=== PATIENT | male | born 1945 | race Caucasian/White ===

== ENCOUNTER 2016-09-29 10:35 | Emergency (ER) | payer MEDICARE, OTHER ==
[~2016-09-29 10:35] MED LIST: ACET50TA PO; ASPI325T PO; CHOLESTEROL MED; LOPR100T; LOPR50TA; LOPR50TA PO; THERGRAN PO; VITA-113; VITAMIN B 12; Vitamin B12 PO; ZOCO20TA PO
[2016-09-29] MEDS ORDERED: ASPIRIN 81 MG CHEW TABLET As Ordered ONE (10:57)
--- NOTE | 2016-09-29 11:22 | REP ---
Portable chest x-ray: Upright AP view. History: Chest pain. Comparison chest x-ray November 25, 2008. Findings: EKG monitoring electrodes overlie the chest. The heart is not enlarged. Lungs are well inflated and clear. Pulmonary vasculature is not increased. Impression: No active disease. Signed by Sheng Islas MD 09/29/2016 11:14 A
[2016-09-29 11:24] LABS: ANION GAP 4 MEQ/L (8-16); BLOOD UREA NITROGEN 13 MG/DL (7-18); CALCIUM LEVEL 8.4 MG/DL (8.8-10.2); CARBON DIOXIDE LEVEL 30 MEQ/L (21-32); CHLORIDE LEVEL 107 MEQ/L (98-107); CREATININE FOR GFR 0.89 MG/DL (0.70-1.30); GLOMERULAR FILTRATION RATE > 60.0 (>49); GLUCOSE, FASTING 95 MG/DL (80-110); POTASSIUM SERUM 4.3 MEQ/L (3.5-5.1); SODIUM LEVEL 141 MEQ/L (136-145)
[2016-09-29 11:29] LABS: BASO % 0.4 % (0.0-1.0); EOS # 0.2 K/mm3 (0.0-0.50); EOS % 3.8 % (0.0-3.0); LARGE UNSTAINED CELL # 0.1 K/mm3 (0.0-0.4); LARGE UNSTAINED CELL % 2.4 % (0.0-4.0); LYMPH # 1.6 K/mm3 (1.5-4.5); LYMPH % 29.3 % (24.0-44.0); MEAN CORPUSCULAR HEMOGLOBIN 30.3 pg (27.0-33.0); MEAN CORPUSCULAR HGB CONC 34.2 g/dl (32.0-36.5); MEAN CORPUSCULAR VOLUME 88.6 fl (80.0-96.0); MONO # 0.3 K/mm3 (0.0-0.8); MONO % 5.1 % (0.0-5.0); NEUTROPHILS # 3.2 K/mm3 (1.8-7.7); PLATELET COUNT, AUTOMATED 197 k/mm3 (150-450); RED CELL DISTRIBUTION WIDTH 12.5 % (11.5-14.5); WHITE BLOOD COUNT 5.5 K/mm3 (4.0-10.0)
[2016-09-29] MEDS ORDERED: ISOVUE-370 76% 100ML VIAL (Q9967) As Ordered ONE (12:38)
--- NOTE | 2016-09-29 13:37 | REP ---
CT pulmonary angiogram: With IV contrast. History: Chest pain. Comparison studies: Comparison with today's chest x-ray. Contrast dose: 75 cc's of Isovue [address] technique: Helical scanning is acquired and overlapping 1.5 mm and contiguous 3 mm axial images are reformatted. In addition, a 3-D work station is deployed to generate thick slab maximum intensity projection images in sagittal and coronal imaging projections. CT pulmonary angiographic findings: There is good opacification of the pulmonary arterial tree and there is no CT evidence of pulmonary embolism. The thoracic aorta is normal in coarse and caliber and enhancement pattern is smooth. There is no evidence of aneurysm or dissection. No pleural or pericardial effusion is seen. There is mild bilateral hilar lymphadenopathy. There are several small right inferior hilar lymph nodes. There are nodular opacities in the right lower lobe lung parenchyma. The largest of these measures 9 mm in diameter. There are several other smaller subcentimeter noncalcified pulmonary nodules scattered in the left upper lobe, left lower lobe and right middle lobe. There are pleural plaques noted bilaterally. No free pleural effusion is seen. There are several low-density lesions scattered about the liver consistent with benign hemangiomas. These are unchanged from March 16, [address] study. There is fatty infiltration of the liver. No adrenal lesion is seen. The visualized upper abdominal structures are otherwise unremarkable. No bony destructive lesion is seen. Impression: 1. No CT evidence of pulmonary embolus. 2. Multiple small bilateral hilar lymph nodes, right more numerous than left. 3. Two or three nodular parenchymal densities in the right lower lobe, indeterminate . Scattered smaller noncalcified pulmonary nodules bilaterally. Recommend followup chest CT study in 3-4 months' time. 4. Multiple hemangiomas of the liver unchanged from the 2012 prior study. Signed by Sheng Islas MD 09/29/2016 04:32 P
--- NOTE | 2016-09-29 15:08 | EDDOCDS ---
Physician Documentation [facility] Name: Montana Pablo Age: 71 yrs Sex: Male : 1945 Arrival Date: 09/29/2016 Time: 10:35 Bed 12 Private MD: Disposition: 09/29/16 14:47 Discharged to Home/Self Care. Impression: Chest pain, unspecified. - Condition is Stable. - Discharge Instructions: Nonspecific Chest Pain, Chest Wall Pain. - Medication Reconciliation, Local Pharmacy Hours form. - Follow up: Jonathan Oslon; When: Call to arrange an appointment; Reason: Continuance of care. Follow up: Jovanny Mcdaniel MD; When: Call to arrange an appointment; Reason: Continuance of care. - Problem is new. - Symptoms have improved. Historical: - Allergies: no known allergies; - Home Meds: 1. Simvastatin Oral once daily 2. Vitamin B-12 Oral daily - PMHx: Hypertension; Hypercholesterolemia; - PSHx: Duodenal Ulcer Surgery; - Social history: No barriers to communication noted, The patient speaks fluent Egyptian, Smoking status: Patient states former smoker of tobacco. - Family history: Not pertinent. - : The pt / caregiver states he / she is not on anticoagulants. Home medication list is obtained from the patient. - Exposure Risk Screening:: None identified. Vital Signs: 09/29 10:47 BP 148 / 65; Pulse 77; Resp 18; Temp 97.8(O); Pulse Ox 99% on R/A; Weight 86.18 kg / ct3 189.99 lbs (R); Height 5 ft. 6 in. (167.64 cm) (R); Pain 0/10; 10:56 BP 135 / 58 (auto/); mk4 10:56 Pulse 64 MON; Pulse Ox 97% ; mk4 11:10 Pulse 66 MON; Pulse Ox 98% ; mk4 11:11 BP 137 / 70 (auto/); mk4 11:26 BP 138 / 74 (auto/); mk4 11:27 Pulse 64 MON; Pulse Ox 97% ; mk4 11:41 BP 134 / 73 (auto/); mk4 11:42 Pulse 66 MON; Pulse Ox 96% ; mk4 11:56 BP 134 / 74 (auto/); mk4 11:56 Pulse 64 MON; Pulse Ox 99% ; mk4 12:11 BP 123 / 79 (auto/); mk4 12:11 Pulse 66 MON; Pulse Ox 98% ; mk4 12:26 BP 125 / 83 (auto/); mk4 12:28 Pulse 64 MON; Pulse Ox 98% ; mk4 12:41 BP 122 / 72 (auto/); mk4 12:42 Pulse 64 MON; Pulse Ox 99% ; mk4 13:06 BP 138 / 72 (auto/); mk4 13:07 Pulse 74 MON; Pulse Ox 98% ; mk4 13:26 BP 139 / 72 (auto/); mk4 13:27 Pulse 70 MON; Pulse Ox 97% ; mk4 13:56 BP 130 / 75 (auto/); mk4 13:56 Pulse 72 MON; Pulse Ox 97% ; mk4 14:26 BP 141 / 74 (auto/); mk4 14:27 Pulse 68 MON; Resp 18; Temp 97.2; Pulse Ox 96% ; mk4 10:47 Body Mass Index 30.67 (86.18 kg, 167.64 cm) ct3 MDM: 10:42 ECG WITH READING ER PHYS+CARDIAG ordered. EDMS 10:53 Aspirin Chewable Tablet 324 mg PO once ordered. fg 10:53 Conduit Worker/Pulse Ox/q 30 min VS ordered. fg 10:53 IV Saline Lock ordered. fg 10:53 Rhythm Strip to chart ordered. fg 10:53 Undress patient appropriately for examination ordered. fg 10:54 B-Type Natiuretic Peptide Ordered. EDMS 10:54 Basic Metabolic Profile Ordered. EDMS 10:54 CBC with Diff Ordered. EDMS 10:54 Cardiac Injury Profile Ordered. EDMS 10:54 Partial Thromboplastin Time Ordered. EDMS 10:54 Troponin Ordered. EDMS 10:55 portable chest Ordered. EDMS 11:32 [facility] Payment Agreement was scanned into [employer] and attached to record. jp5 11:32 Financial registration complete. jp5 12:24 CT Chest Angio R/O PE Ordered. EDMS Administered Medications: 11:05 Drug: Aspirin 324 mg [aspirin 81 mg chewable tablet (4 tabs)] Route: PO; mk4 Signatures: Dispatcher [employer] EDMS Mónica Shaw RN RN [facility] Jory Chery RN RN mk4 Arely Nugent jp5 Yola Hernandez MD MD fg The chart was reviewed and I authenticate all verbal orders and agree with the evaluation and treatment provided.Attachments: 11:32 [facility] Payment Agreement jp5 MTDD
--- NOTE | 2016-09-29 15:08 | EDDOCDS ---
Nurse's Notes [facility] Name: Montana Pablo Age: 71 yrs Sex: Male : 1945 Arrival Date: 09/29/2016 Time: 10:35 Bed 12 Private MD: Diagnosis: Chest pain, unspecified Presentation: 09/29 10:47 Presenting complaint: Patient states: pt developed chest pain Monday afternoon/ evening mk4 after sneezing . had carried a heavy table up stairs earlier that day, has had discomfort ranging from burning to aching since that time, left chest and sometimes left scapular area , no cardiac history, pain is reproducable. 10:49 Adult Sepsis Screening: The patient does not have new or worsening altered mentation. mk4 Patient's respiratory rate is less than 22. Systolic blood pressure is greater than 100. Patient has a qSOFA score of 0- Negative Sepsis Screen. Suicide/Homicide risk assessment- the patient denies having any suicidal and/or homicidal ideations and does not present with any other emotional, behavioral or mental health complaints. Status: Patient is not a coordinator volunteer services or dependent. Transition of care: Patient was received from [facility]. 10:49 Acuity: STARLA Level 3 mk4 10:49 Method Of Arrival: Ambulance mk4 10:54 Aspirin was not taken prior to arrival. mk4 Triage Assessment: 10:51 General: Appears in no apparent distress. Pain: Denies pain. Cardiovascular: Chest pain mk4 is denied began 5-6 days ago. Respiratory: Airway is patent Respiratory effort is even, unlabored, Respiratory pattern is regular. Derm: Skin is intact, is healthy with good turgor, Skin is pink, warm & dry. 10:54 Cardiovascular: Chest pain is denied. mk4 11:30 Cardiovascular: Chest pain is described as none at this time. radiates Does not mk4 radiate. episodes are intermittent. Historical: - Allergies: no known allergies; - Home Meds: 1. Simvastatin Oral once daily 2. Vitamin B-12 Oral daily - PMHx: Hypertension; Hypercholesterolemia; - PSHx: Duodenal Ulcer Surgery; - Social history: No barriers to communication noted, The patient speaks fluent Maori, Smoking status: Patient states former smoker of tobacco. - Family history: Not pertinent. - : The pt / caregiver states he / she is not on anticoagulants. Home medication list is obtained from the patient. - Exposure Risk Screening:: None identified. Screenin:00 Screening information is obtained from the patient. Fall risk: No risks identified. mk4 Assistance ADL's: requires no assistance with activities of daily living. Abuse/DV Screen: The patient / caregiver reports he/she is: not in a situation that causes fear, pain or injury. Nutritional screening: No deficits noted. Advance Directives: Currently, there is no health care proxy. There is no active DNR order. There is no living will. There is no Power of Sail Repair Person. Advance directive information has not previously been placed in an [facility] medical record. Further advance directive information is declined. home support is adequate. Assessment: 11:13 General: Appears in no apparent distress, comfortable, Behavior is. mk4 12:00 General: Appears in no apparent distress, comfortable, Behavior is cooperative, mk4 pleasant. Pain: Denies pain. Neurological: Level of Consciousness is awake, alert. Cardiovascular: Rhythm is regular. Respiratory: Airway is patent Respiratory effort is even, unlabored, Respiratory pattern is regular. 13:21 General: Appears in no apparent distress, comfortable. Pain: Location: left scapular mk4 area Pain currently is 4 out of 10 on a pain scale. Neurological: Level of Consciousness is awake, alert, Oriented to person, place, time. Cardiovascular: Rhythm is regular Chest pain is denied. Respiratory: Airway is patent Respiratory effort is even, unlabored, Respiratory pattern is regular, Breath sounds are clear bilaterally. Derm: Skin is intact, is healthy with good turgor, Skin is pink, warm & dry. 14:06 General: Appears in no apparent distress, awaiting test results . Cardiovascular: mk4 Rhythm is regular Chest pain is denied. 14:48 General: Appears in no apparent distress, comfortable, Behavior is cooperative. Pain: mk4 Denies pain. Vital Signs: 10:47 BP 148 / 65; Pulse 77; Resp 18; Temp 97.8(O); Pulse Ox 99% on R/A; Weight 86.18 kg (R); ct3 Height 5 ft. 6 in. (167.64 cm) (R); Pain 0/10; 10:56 BP 135 / 58 (auto/); mk4 10:56 Pulse 64 MON; Pulse Ox 97% ; mk4 11:10 Pulse 66 MON; Pulse Ox 98% ; mk4 11:11 BP 137 / 70 (auto/); mk4 11:26 BP 138 / 74 (auto/); mk4 11:27 Pulse 64 MON; Pulse Ox 97% ; mk4 11:41 BP 134 / 73 (auto/); mk4 11:42 Pulse 66 MON; Pulse Ox 96% ; mk4 11:56 BP 134 / 74 (auto/); mk4 11:56 Pulse 64 MON; Pulse Ox 99% ; mk4 12:11 BP 123 / 79 (auto/); mk4 12:11 Pulse 66 MON; Pulse Ox 98% ; mk4 12:26 BP 125 / 83 (auto/); mk4 12:28 Pulse 64 MON; Pulse Ox 98% ; mk4 12:41 BP 122 / 72 (auto/); mk4 12:42 Pulse 64 MON; Pulse Ox 99% ; mk4 13:06 BP 138 / 72 (auto/); mk4 13:07 Pulse 74 MON; Pulse Ox 98% ; mk4 13:26 BP 139 / 72 (auto/); mk4 13:27 Pulse 70 MON; Pulse Ox 97% ; mk4 13:56 BP 130 / 75 (auto/); mk4 13:56 Pulse 72 MON; Pulse Ox 97% ; mk4 14:26 BP 141 / 74 (auto/); mk4 14:27 Pulse 68 MON; Resp 18; Temp 97.2; Pulse Ox 96% ; mk4 10:47 Body Mass Index 30.67 (86.18 kg, 167.64 cm) ct3 Vitals: 10:47 Log In Time N/A - ambulance arrival. ct3 ED Course: 10:36 Patient visited by Nicol Rose, Security Director. deg 10:36 Patient moved to Waiting deg 10:36 Patient moved to 12 deg 10:46 Patient visited by Himanshu Morillo. dem1 10:46 Pt greeted and oriented to ED. Patient advised of names of staff involved in care, [facility] location of call jackson, wait times and NPO status. Patient has correct armband on for positive identification. Placed in gown. Bed in low position. Call light in reach. Side rails up X2. mattress filler on. Pulse ox on. NIBP on. 10:46 EKG done. (by ED staff). Reviewed by Yola Hernandez MD. dem1 10:48 Patient visited by Sugey Borges PCA. ct3 10:50 Triage Initiated mk4 10:52 Maintain field IV. Good blood return noted. Site clean & dry. Flushed left antecubital mk4 saline lock. 10:54 B-Type Natiuretic Peptide Sent. mk4 10:54 Basic Metabolic Profile Sent. mk4 10:54 CBC with Diff Sent. mk4 10:54 Cardiac Injury Profile Sent. mk4 10:55 Partial Thromboplastin Time Sent. mk4 10:55 Troponin Sent. mk4 11:26 Yola Hernandez MD is Attending Physician. fg 11:26 Patient visited by Yola Hernandez MD. fg 11:32 [facility] Payment Agreement was scanned into [employer] and attached to record. jp5 11:45 portable chest Returned. EDMS 12:00 The patient / caregiver is instructed regarding the plan of care and ED course. mk4 12:00 No procedures done that require assistance. mk4 12:28 Patient visited by Sugey Borges PCA. ct3 13:21 Patient visited by Jory Chrey, DARRELL. mk4 13:53 Patient visited by Jory Chery, DARRELL. mk4 14:06 CT Chest Angio R/O PE Returned. EDMS 14:26 Patient visited by Jory Chery RN. mk4 14:46 Discontinued IV lock bleeding controlled, pressure dressing applied. mk4 14:47 Jonathan Olson is Referral Physician. fg 14:47 Jovanny Mcdaniel MD is Referral Physician. fg Administered Medications: 11:05 Drug: Aspirin 324 mg [aspirin 81 mg chewable tablet (4 tabs)] Route: PO; mk4 Order Results: Lab Order: B-Type Natiuretic Peptide; SPEC'M 09/29/16 10:41 Test: BRAIN NATRIURETIC PEPTIDE; Value: 19.0; Range: <100; Units: PG/ML; Status: F Lab Order: Basic Metabolic Profile; SPEC'M 09/29/16 10:41 Test: GLUCOSE, FASTING; Value: 95; Range: 80-110; Units: MG/DL; Status: F Test: BLOOD UREA NITROGEN; Value: 13; Range: 7-18; Units: MG/DL; Status: F Test: CREATININE FOR GFR; Value: 0.89; Range: 0.70-1.30; Units: MG/DL; Status: F Test: GLOMERULAR FILTRATION RATE; Value: > 60.0; Range: >49; Status: F Test: SODIUM LEVEL; Value: 141; Range: 136-145; Units: MEQ/L; Status: F Test: POTASSIUM SERUM; Value: 4.3; Range: 3.5-5.1; Units: MEQ/L; Status: F Test: CHLORIDE LEVEL; Value: 107; Range: 98-107; Units: MEQ/L; Status: F Test: CARBON DIOXIDE LEVEL; Value: 30; Range: 21-32; Units: MEQ/L; Status: F Test: ANION GAP; Value: 4; Range: 8-16; Abnormal: Below low normal; Units: MEQ/L; Status: F Test: CALCIUM LEVEL; Value: 8.4; Range: 8.8-10.2; Abnormal: Below low normal; Units: MG/DL; Status: F Test Note: ; Units are mL/min/1.73 m2 Chronic Kidney Disease Staging per NKF: Stage I & II GFR >=60 Normal to Mildly Decreased Stage III GFR 30-59 Moderately Decreased Stage IV GFR 15-29 Severely Decreased Stage V GFR <15 Very Little GFR Left ESRD GFR <15 on SPECIAL EVENTS DRIVER Lab Order: CBC with Diff; SPEC'M 09/29/16 10:41 Test: WHITE BLOOD COUNT; Value: 5.5; Range: 4.0-10.0; Units: K/mm3; Status: F Test: RED BLOOD COUNT; Value: 4.93; Range: 4.30-6.10; Units: M/mm3; Status: F Test: HEMOGLOBIN; Value: 14.9; Range: 14.0-18.0; Units: g/dl; Status: F Test: HEMATOCRIT; Value: 43.7; Range: 42.0-52.0; Units: %; Status: F Test: MEAN CORPUSCULAR VOLUME; Value: 88.6; Range: 80.0-96.0; Units: fl; Status: F Test: MEAN CORPUSCULAR HEMOGLOBIN; Value: 30.3; Range: 27.0-33.0; Units: pg; Status: F Test: MEAN CORPUSCULAR HGB CONC; Value: 34.2; Range: 32.0-36.5; Units: g/dl; Status: F Test: RED CELL DISTRIBUTION WIDTH; Value: 12.5; Range: 11.5-14.5; Units: %; Status: F Test: PLATELET COUNT, AUTOMATED; Value: 197; Range: 150-450; Units: k/mm3; Status: F Test: NEUTROPHILS %; Value: 59.0; Range: 36.0-66.0; Units: %; Status: F Test: LYMPH %; Value: 29.3; Range: 24.0-44.0; Units: %; Status: F Test: MONO %; Value: 5.1; Range: 0.0-5.0; Abnormal: Above high normal; Units: %; Status: F Test: EOS %; Value: 3.8; Range: 0.0-3.0; Abnormal: Above high normal; Units: %; Status: F Test: BASO %; Value: 0.4; Range: 0.0-1.0; Units: %; Status: F Test: LARGE UNSTAINED CELL %; Value: 2.4; Range: 0.0-4.0; Units: %; Status: F Test: NEUTROPHILS #; Value: 3.2; Range: 1.8-7.7; Units: K/mm3; Status: F Test: LYMPH #; Value: 1.6; Range: 1.5-4.5; Units: K/mm3; Status: F Test: MONO #; Value: 0.3; Range: 0.0-0.8; Units: K/mm3; Status: F Test: EOS #; Value: 0.2; Range: 0.0-0.50; Units: K/mm3; Status: F Test: BASO #; Value: 0.0; Range: 0.0-0.2; Units: K/mm3; Status: F Test: LARGE UNSTAINED CELL #; Value: 0.1; Range: 0.0-0.4; Units: K/mm3; Status: F Lab Order: Cardiac Injury Profile; SPEC'M 09/29/16 10:41 Test: CPK CREATINE PHOSPHOKINASE; Value: 135; Range: 39-308; Units: U/L; Status: F Test: CK-MB VALUE MASS; Value: 2.1; Range: 0.0-3.6; Units: NG/ML; Status: F Test: MB/CK RELATIVE INDEX; Value: 1.55; Range: < OR =4; Status: F Test Note: ; DIAGNOSIS CRITERIA MMB ng/ml Relative Index (RI) NON-AMI < or = 5 N/A VALLADARES ZONE > 5 < or = 4 AMI > 5 > 4 Lab Order: Partial Thromboplastin Time; SPEC'M 09/29/16 10:41 Test: PARTIAL THROMBOPLASTIN TIME; Value: 28.1; Range: 26.6-37.1; Units: SECONDS; Status: F Lab Order: Troponin; SPEC'M 09/29/16 10:41 Test: TROPONIN I; Value: < 0.02; Range: < 0.10; Units: NG/ML; Status: F Test Note: ; Troponin I Reference Interval for Splother LOCI: 99th Percentile= 0.00-0.045 ng/ml Risk Stratification: <= 0.10 ng/ml Decreased Risk for Adverse Clinical Events. 0.10-1.50 ng/ml Increased Risk for Adverse Clinical Events. Evaluation of additional criterion and/or repeat testing in 2-6 hours is suggested to rule out myocardial damage. >= 1.50 ng/ml Indicative of Myocardial Injury. Radiology Order: portable chest Test: portable chest REASON FOR EXAMINATION: Chest Pain; Portable chest x-ray: Upright AP view.; ; History: Chest pain.; ; Comparison chest x-ray November 25, 2008.; ; Findings: EKG monitoring electrodes overlie the chest. The heart is not; enlarged. Lungs are well inflated and clear. Pulmonary vasculature is not; increased.; ; Impression:; ; No active disease.; ; ; Signed by; Sheng Islas MD 09/29/2016 11:14 A; Radiology Order: CT Chest Angio R/O PE Test: CT Chest Angio R/O PE REASON FOR EXAMINATION: Chest Pain; CT pulmonary angiogram: With IV contrast.; ; History: Chest pain.; ; Comparison studies: Comparison with today's chest x-ray.; ; Contrast dose: 75 cc's of Isovue 370 are administered intravenously.; ; CT technique: Helical scanning is acquired and overlapping 1.5 mm and contiguous; 3 mm axial images are reformatted. In addition, a 3-D work station is deployed; to generate thick slab maximum intensity projection images in sagittal and; coronal imaging projections.; ; CT pulmonary angiographic findings: There is good opacification of the pulmonary; arterial tree and there is no CT evidence of pulmonary embolism. The thoracic; aorta is normal in coarse and caliber and enhancement pattern is smooth. There; is no evidence of aneurysm or dissection. No pleural or pericardial effusion is; seen. There is mild bilateral hilar lymphadenopathy. There are several small; right inferior hilar lymph nodes. There are nodular opacities in the right lower; lobe lung parenchyma. The largest of these measures 9 mm in diameter. There are; several other smaller subcentimeter noncalcified pulmonary nodules scattered in; the left upper lobe, left lower lobe and right middle lobe. There are pleural; plaques noted bilaterally. No free pleural effusion is seen.; ; There are several low-density lesions scattered about the liver consistent with; benign hemangiomas. These are unchanged from March 16, [address] study.; There is fatty infiltration of the liver. No adrenal lesion is seen. The; visualized upper abdominal structures are otherwise unremarkable. No bony; destructive lesion is seen.; ; Impression:; 1. No CT evidence of pulmonary embolus.; 2. Multiple small bilateral hilar lymph nodes, right more numerous than left.; 3. Two or three nodular parenchymal densities in the right lower lobe,; indeterminate . Scattered smaller noncalcified pulmonary nodules bilaterally.; Recommend followup chest CT study in 3-4 months' time.; 4. Multiple hemangiomas of the liver unchanged from the 2011 prior study.; ; ; ; Unreviewed; Outcome: 14:08 CT Study completed. mk4 14:45 Discharge Assessment: Patient awake, alert and oriented x 3. No cognitive and/or mk4 functional deficits noted. Patient verbalized understanding of disposition instructions. Patient awake and alert. Discharge Assessment: patient administered narcotics - no. The following High Risk Discharge criteria are identified: None. Condition: good Condition: stable. Property sent home with patient. 14:47 Discharge ordered by Provider. fg 15:07 Patient left the ED. [facility] Signatures: Dispatcher [employer] EDMS Nicol Rose, Security Director Unit deg Mónica Shaw RN RN mcp Taveras, Consuelo, DEAN OF INSTRUCTION DEAN OF INSTRUCTION ct3 Himanshu Morillo dem1 Jory Chery RN RN 4 Arely Nugent jp5 Yola Hernandez MD MD fg Corrections: (The following items were deleted from the chart) 14:07 13:53 General: mk4 mk4 MTDD
--- NOTE | 2016-09-30 21:01 | ECGEPIP ---
Stationary ECG Study [facility] - ED Test Date: 2016-09-29 Pat Name: GUNNAR TANG Department: Room: - Gender: M Teaching Dietitian: guillermo : 1945 Requested By: SALVADOR Marti Order Number: [id number] Reading MD: Chloe Sifuentes Measurements Intervals [place] Rate: 66 P: 38 NE: 166 QRS: -1 QRSD: 93 T: -10 QT: 363 QTc: 381 Interpretive Statements SINUS RHYTHM NSTTW ABNORMALITY NO PRIOR FOR COMPARISON Electronically Signed On 09-30-2016 21:00:41 EST by Chloe Sifuentes
--- NOTE | 2016-10-01 16:09 | EDDOCDS ---
Physician Documentation [facility] Name: Montana Pablo Age: 71 yrs Sex: Male : 1945 Arrival Date: 09/29/2016 Time: 10:35 Bed 12 Private MD: Disposition: 09/29/16 14:47 Discharged to Home/Self Care. Impression: Chest pain, unspecified. - Condition is Stable. - Discharge Instructions: Nonspecific Chest Pain, Chest Wall Pain. - Medication Reconciliation, Local Pharmacy Hours form. - Follow up: Jonathan Olson; When: Call to arrange an appointment; Reason: Continuance of care. Follow up: Jovanny Mcdaniel MD; When: Call to arrange an appointment; Reason: Continuance of care. - Problem is new. - Symptoms have improved. Historical: - Allergies: no known allergies; - Home Meds: 1. Simvastatin Oral once daily 2. Vitamin B-12 Oral daily - PMHx: Hypertension; Hypercholesterolemia; - PSHx: Duodenal Ulcer Surgery; - Social history: No barriers to communication noted, The patient speaks fluent Anguillan, Smoking status: Patient states former smoker of tobacco. - Family history: Not pertinent. - : The pt / caregiver states he / she is not on anticoagulants. Home medication list is obtained from the patient. - Exposure Risk Screening:: None identified. Vital Signs: 09/29 10:47 BP 148 / 65; Pulse 77; Resp 18; Temp 97.8(O); Pulse Ox 99% on R/A; Weight 86.18 kg / ct3 189.99 lbs (R); Height 5 ft. 6 in. (167.64 cm) (R); Pain 0/10; 10:56 BP 135 / 58 (auto/); mk4 10:56 Pulse 64 MON; Pulse Ox 97% ; mk4 11:10 Pulse 66 MON; Pulse Ox 98% ; mk4 11:11 BP 137 / 70 (auto/); mk4 11:26 BP 138 / 74 (auto/); mk4 11:27 Pulse 64 MON; Pulse Ox 97% ; mk4 11:41 BP 134 / 73 (auto/); mk4 11:42 Pulse 66 MON; Pulse Ox 96% ; mk4 11:56 BP 134 / 74 (auto/); mk4 11:56 Pulse 64 MON; Pulse Ox 99% ; mk4 12:11 BP 123 / 79 (auto/); mk4 12:11 Pulse 66 MON; Pulse Ox 98% ; mk4 12:26 BP 125 / 83 (auto/); mk4 12:28 Pulse 64 MON; Pulse Ox 98% ; mk4 12:41 BP 122 / 72 (auto/); mk4 12:42 Pulse 64 MON; Pulse Ox 99% ; mk4 13:06 BP 138 / 72 (auto/); mk4 13:07 Pulse 74 MON; Pulse Ox 98% ; mk4 13:26 BP 139 / 72 (auto/); mk4 13:27 Pulse 70 MON; Pulse Ox 97% ; mk4 13:56 BP 130 / 75 (auto/); mk4 13:56 Pulse 72 MON; Pulse Ox 97% ; mk4 14:26 BP 141 / 74 (auto/); mk4 14:27 Pulse 68 MON; Resp 18; Temp 97.2; Pulse Ox 96% ; mk4 10:47 Body Mass Index 30.67 (86.18 kg, 167.64 cm) ct3 MDM: 10:42 ECG WITH READING ER PHYS+CARDIAG ordered. EDMS 10:53 Aspirin Chewable Tablet 324 mg PO once ordered. fg 10:53 Breakfast Supervisor/Pulse Ox/q 30 min VS ordered. fg 10:53 IV Saline Lock ordered. fg 10:53 Rhythm Strip to chart ordered. fg 10:53 Undress patient appropriately for examination ordered. fg 10:54 B-Type Natiuretic Peptide Ordered. EDMS 10:54 Basic Metabolic Profile Ordered. EDMS 10:54 CBC with Diff Ordered. EDMS 10:54 Cardiac Injury Profile Ordered. EDMS 10:54 Partial Thromboplastin Time Ordered. EDMS 10:54 Troponin Ordered. EDMS 10:55 portable chest Ordered. EDMS 11:32 [facility] [place] [facility] Payment Agreement was scanned into [employer] and attached to record. jp5 11:32 Financial registration complete. jp5 12:24 CT Chest Angio R/O PE Ordered. EDMS 09/30 09:52 T-Sheet-- Draft Copy was scanned into [employer] and attached to record. gb 09:52 ECG/EKG was scanned into [employer] and attached to record. gb Administered Medications: 09/29 11:05 Drug: Aspirin 324 mg [aspirin 81 mg chewable tablet (4 tabs)] Route: PO; mk4 Signatures: Dispatcher [employer] Mónica Elliott, RN RN Jeane Dunlap, Jovanny Reg gb Jory Chery RN RN sanam4 Arely Nugent jp5 Yola Hernandez MD MD The chart was reviewed and I authenticate all verbal orders and agree with the evaluation and treatment provided.Attachments: 11:32 [facility] Payment Agreement jp5 09/30 09:52 T-Sheet-- Draft Copy gb 09:52 ECG/EKG gb Chart Complete MTDD
--- NOTE | 2016-10-01 16:09 | EDDOCDS ---
Nurse's Notes [facility] Name: Gunnar Pablo Age: 71 yrs Sex: Male : 1945 Arrival Date: 09/29/2016 Time: 10:35 Bed 12 Private MD: Diagnosis: Chest pain, unspecified Presentation: 09/29 10:47 Presenting complaint: Patient states: pt developed chest pain Monday afternoon/ evening mk4 after sneezing . had carried a heavy table up stairs earlier that day, has had discomfort ranging from burning to aching since that time, left chest and sometimes left scapular area , no cardiac history, pain is reproducable. 10:49 Adult Sepsis Screening: The patient does not have new or worsening altered mentation. mk4 Patient's respiratory rate is less than 22. Systolic blood pressure is greater than 100. Patient has a qSOFA score of 0- Negative Sepsis Screen. Suicide/Homicide risk assessment- the patient denies having any suicidal and/or homicidal ideations and does not present with any other emotional, behavioral or mental health complaints. Status: Patient is not a certified appliance service technician or dependent. Transition of care: Patient was received from [facility]. 10:49 Acuity: STARLA Level 3 mk4 10:49 Method Of Arrival: Ambulance mk4 10:54 Aspirin was not taken prior to arrival. mk4 Triage Assessment: 10:51 General: Appears in no apparent distress. Pain: Denies pain. Cardiovascular: Chest pain mk4 is denied began 5-6 days ago. Respiratory: Airway is patent Respiratory effort is even, unlabored, Respiratory pattern is regular. Derm: Skin is intact, is healthy with good turgor, Skin is pink, warm & dry. 10:54 Cardiovascular: Chest pain is denied. mk4 11:30 Cardiovascular: Chest pain is described as none at this time. radiates Does not mk4 radiate. episodes are intermittent. Historical: - Allergies: no known allergies; - Home Meds: 1. Simvastatin Oral once daily 2. Vitamin B-12 Oral daily - PMHx: Hypertension; Hypercholesterolemia; - PSHx: Duodenal Ulcer Surgery; - Social history: No barriers to communication noted, The patient speaks fluent Slovenian, Smoking status: Patient states former smoker of tobacco. - Family history: Not pertinent. - : The pt / caregiver states he / she is not on anticoagulants. Home medication list is obtained from the patient. - Exposure Risk Screening:: None identified. Screenin:00 Screening information is obtained from the patient. Fall risk: No risks identified. mk4 Assistance ADL's: requires no assistance with activities of daily living. Abuse/DV Screen: The patient / caregiver reports he/she is: not in a situation that causes fear, pain or injury. Nutritional screening: No deficits noted. Advance Directives: Currently, there is no health care proxy. There is no active DNR order. There is no living will. There is no Power of Clinic Clerk. Advance directive information has not previously been placed in an [facility] medical record. Further advance directive information is declined. home support is adequate. Assessment: 11:13 General: Appears in no apparent distress, comfortable, Behavior is. mk4 12:00 General: Appears in no apparent distress, comfortable, Behavior is cooperative, mk4 pleasant. Pain: Denies pain. Neurological: Level of Consciousness is awake, alert. Cardiovascular: Rhythm is regular. Respiratory: Airway is patent Respiratory effort is even, unlabored, Respiratory pattern is regular. 13:21 General: Appears in no apparent distress, comfortable. Pain: Location: left scapular mk4 area Pain currently is 4 out of 10 on a pain scale. Neurological: Level of Consciousness is awake, alert, Oriented to person, place, time. Cardiovascular: Rhythm is regular Chest pain is denied. Respiratory: Airway is patent Respiratory effort is even, unlabored, Respiratory pattern is regular, Breath sounds are clear bilaterally. Derm: Skin is intact, is healthy with good turgor, Skin is pink, warm & dry. 14:06 General: Appears in no apparent distress, awaiting test results . Cardiovascular: mk4 Rhythm is regular Chest pain is denied. 14:48 General: Appears in no apparent distress, comfortable, Behavior is cooperative. Pain: mk4 Denies pain. Vital Signs: 10:47 BP 148 / 65; Pulse 77; Resp 18; Temp 97.8(O); Pulse Ox 99% on R/A; Weight 86.18 kg (R); ct3 Height 5 ft. 6 in. (167.64 cm) (R); Pain 0/10; 10:56 BP 135 / 58 (auto/); mk4 10:56 Pulse 64 MON; Pulse Ox 97% ; mk4 11:10 Pulse 66 MON; Pulse Ox 98% ; mk4 11:11 BP 137 / 70 (auto/); mk4 11:26 BP 138 / 74 (auto/); mk4 11:27 Pulse 64 MON; Pulse Ox 97% ; mk4 11:41 BP 134 / 73 (auto/); mk4 11:42 Pulse 66 MON; Pulse Ox 96% ; mk4 11:56 BP 134 / 74 (auto/); mk4 11:56 Pulse 64 MON; Pulse Ox 99% ; mk4 12:11 BP 123 / 79 (auto/); mk4 12:11 Pulse 66 MON; Pulse Ox 98% ; mk4 12:26 BP 125 / 83 (auto/); mk4 12:28 Pulse 64 MON; Pulse Ox 98% ; mk4 12:41 BP 122 / 72 (auto/); mk4 12:42 Pulse 64 MON; Pulse Ox 99% ; mk4 13:06 BP 138 / 72 (auto/); mk4 13:07 Pulse 74 MON; Pulse Ox 98% ; mk4 13:26 BP 139 / 72 (auto/); mk4 13:27 Pulse 70 MON; Pulse Ox 97% ; mk4 13:56 BP 130 / 75 (auto/); mk4 13:56 Pulse 72 MON; Pulse Ox 97% ; mk4 14:26 BP 141 / 74 (auto/); mk4 14:27 Pulse 68 MON; Resp 18; Temp 97.2; Pulse Ox 96% ; mk4 10:47 Body Mass Index 30.67 (86.18 kg, 167.64 cm) ct3 Vitals: 10:47 Log In Time N/A - ambulance arrival. ct3 ED Course: 10:36 Patient visited by Nicol Rose, Peanut Vendor. deg 10:36 Patient moved to Waiting deg 10:36 Patient moved to 12 deg 10:46 Patient visited by Himanshu Morillo. dem1 10:46 Pt greeted and oriented to ED. Patient advised of names of staff involved in care, [facility] location of call jackson, wait times and NPO status. Patient has correct armband on for positive identification. Placed in gown. Bed in low position. Call light in reach. Side rails up X2. monitoring tech on. Pulse ox on. NIBP on. 10:46 EKG done. (by ED staff). Reviewed by Yola Hernandez MD. dem1 10:48 Patient visited by Sugey Borges PCA. ct3 10:50 Triage Initiated mk4 10:52 Maintain field IV. Good blood return noted. Site clean & dry. Flushed left antecubital mk4 saline lock. 10:54 B-Type Natiuretic Peptide Sent. mk4 10:54 Basic Metabolic Profile Sent. mk4 10:54 CBC with Diff Sent. mk4 10:54 Cardiac Injury Profile Sent. mk4 10:55 Partial Thromboplastin Time Sent. mk4 10:55 Troponin Sent. mk4 11:26 Yola Henrandez MD is Attending Physician. fg 11:26 Patient visited by Yola Hernandez MD. fg 11:32 [facility] Payment Agreement was scanned into [employer] and attached to record. jp5 11:45 portable chest Returned. EDMS 12:00 The patient / caregiver is instructed regarding the plan of care and ED course. mk4 12:00 No procedures done that require assistance. mk4 12:28 Patient visited by Sugey Borges PCA. ct3 13:21 Patient visited by Jory Chery, DARRELL. mk4 13:53 Patient visited by Jory Chery, DARRELL. mk4 14:06 CT Chest Angio R/O PE Returned. EDMS 14:26 Patient visited by Jory Chery, DARRELL. mk4 14:46 Discontinued IV lock bleeding controlled, pressure dressing applied. mk4 14:47 Jonathan Olson is Referral Physician. fg 14:47 Jovanny Mcdaniel MD is Referral Physician. fg 09/30 09:52 T-Sheet-- Draft Copy was scanned into [employer] and attached to record. gb 09:52 ECG/EKG was scanned into [employer] and attached to record. gb 21:17 EKG-ADULT Returned. EDMS Administered Medications: 09/29 11:05 Drug: Aspirin 324 mg [aspirin 81 mg chewable tablet (4 tabs)] Route: PO; mk4 Order Results: Lab Order: B-Type Natiuretic Peptide; SPEC'M 09/29/16 10:41 Test: BRAIN NATRIURETIC PEPTIDE; Value: 19.0; Range: <100; Units: PG/ML; Status: F Lab Order: Basic Metabolic Profile; SPEC'M 09/29/16 10:41 Test: GLUCOSE, FASTING; Value: 95; Range: 80-110; Units: MG/DL; Status: F Test: BLOOD UREA NITROGEN; Value: 13; Range: 7-18; Units: MG/DL; Status: F Test: CREATININE FOR GFR; Value: 0.89; Range: 0.70-1.30; Units: MG/DL; Status: F Test: GLOMERULAR FILTRATION RATE; Value: > 60.0; Range: >49; Status: F Test: SODIUM LEVEL; Value: 141; Range: 136-145; Units: MEQ/L; Status: F Test: POTASSIUM SERUM; Value: 4.3; Range: 3.5-5.1; Units: MEQ/L; Status: F Test: CHLORIDE LEVEL; Value: 107; Range: 98-107; Units: MEQ/L; Status: F Test: CARBON DIOXIDE LEVEL; Value: 30; Range: 21-32; Units: MEQ/L; Status: F Test: ANION GAP; Value: 4; Range: 8-16; Abnormal: Below low normal; Units: MEQ/L; Status: F Test: CALCIUM LEVEL; Value: 8.4; Range: 8.8-10.2; Abnormal: Below low normal; Units: MG/DL; Status: F Test Note: ; Units are mL/min/1.73 m2 Chronic Kidney Disease Staging per NKF: Stage I & II GFR >=60 Normal to Mildly Decreased Stage III GFR 30-59 Moderately Decreased Stage IV GFR 15-29 Severely Decreased Stage V GFR <15 Very Little GFR Left ESRD GFR <15 on NEEDLE LOOM OPERATOR Lab Order: CBC with Diff; SPEC'M 09/29/16 10:41 Test: WHITE BLOOD COUNT; Value: 5.5; Range: 4.0-10.0; Units: K/mm3; Status: F Test: RED BLOOD COUNT; Value: 4.93; Range: 4.30-6.10; Units: M/mm3; Status: F Test: HEMOGLOBIN; Value: 14.9; Range: 14.0-18.0; Units: g/dl; Status: F Test: HEMATOCRIT; Value: 43.7; Range: 42.0-52.0; Units: %; Status: F Test: MEAN CORPUSCULAR VOLUME; Value: 88.6; Range: 80.0-96.0; Units: fl; Status: F Test: MEAN CORPUSCULAR HEMOGLOBIN; Value: 30.3; Range: 27.0-33.0; Units: pg; Status: F Test: MEAN CORPUSCULAR HGB CONC; Value: 34.2; Range: 32.0-36.5; Units: g/dl; Status: F Test: RED CELL DISTRIBUTION WIDTH; Value: 12.5; Range: 11.5-14.5; Units: %; Status: F Test: PLATELET COUNT, AUTOMATED; Value: 197; Range: 150-450; Units: k/mm3; Status: F Test: NEUTROPHILS %; Value: 59.0; Range: 36.0-66.0; Units: %; Status: F Test: LYMPH %; Value: 29.3; Range: 24.0-44.0; Units: %; Status: F Test: MONO %; Value: 5.1; Range: 0.0-5.0; Abnormal: Above high normal; Units: %; Status: F Test: EOS %; Value: 3.8; Range: 0.0-3.0; Abnormal: Above high normal; Units: %; Status: F Test: BASO %; Value: 0.4; Range: 0.0-1.0; Units: %; Status: F Test: LARGE UNSTAINED CELL %; Value: 2.4; Range: 0.0-4.0; Units: %; Status: F Test: NEUTROPHILS #; Value: 3.2; Range: 1.8-7.7; Units: K/mm3; Status: F Test: LYMPH #; Value: 1.6; Range: 1.5-4.5; Units: K/mm3; Status: F Test: MONO #; Value: 0.3; Range: 0.0-0.8; Units: K/mm3; Status: F Test: EOS #; Value: 0.2; Range: 0.0-0.50; Units: K/mm3; Status: F Test: BASO #; Value: 0.0; Range: 0.0-0.2; Units: K/mm3; Status: F Test: LARGE UNSTAINED CELL #; Value: 0.1; Range: 0.0-0.4; Units: K/mm3; Status: F Lab Order: Cardiac Injury Profile; SPEC'M 09/29/16 10:41 Test: CPK CREATINE PHOSPHOKINASE; Value: 135; Range: 39-308; Units: U/L; Status: F Test: CK-MB VALUE MASS; Value: 2.1; Range: 0.0-3.6; Units: NG/ML; Status: F Test: MB/CK RELATIVE INDEX; Value: 1.55; Range: < OR =4; Status: F Test Note: ; DIAGNOSIS CRITERIA MMB ng/ml Relative Index (RI) NON-AMI < or = 5 N/A VALLADARES ZONE > 5 < or = 4 AMI > 5 > 4 Lab Order: Partial Thromboplastin Time; SPEC' 09/29/16 10:41 Test: PARTIAL THROMBOPLASTIN TIME; Value: 28.1; Range: 26.6-37.1; Units: SECONDS; Status: F Lab Order: Troponin; SPEC' 09/29/16 10:41 Test: TROPONIN I; Value: < 0.02; Range: < 0.10; Units: NG/ML; Status: F Test Note: ; Troponin I Reference Interval for [employer] LOCI: 99th Percentile= 0.00-0.045 ng/ml Risk Stratification: <= 0.10 ng/ml Decreased Risk for Adverse Clinical Events. 0.10-1.50 ng/ml Increased Risk for Adverse Clinical Events. Evaluation of additional criterion and/or repeat testing in 2-6 hours is suggested to rule out myocardial damage. >= 1.50 ng/ml Indicative of Myocardial Injury. Radiology Order: EKG-ADULT Test: EKG-ADULT REASON FOR EXAMINATION: Chest Pain; Stationary ECG Study; [facility] - ED; ; Test Date: 2016-09-29; Pat Name: GUNNAR PABLO Department:; Room: -; Gender: M Motorcycle Delivery Driver: dm; : 1945 Requested By: YOLA Marti; Order Number: [id number] Reading MD: Chloe Sifuentes; Measurements; Intervals [place]; Rate: 66 P: 38; MN: 166 QRS: -1; QRSD: 93 T: -10; QT: 363; QTc: 381; Interpretive Statements; SINUS RHYTHM; NSTTW ABNORMALITY; NO PRIOR FOR COMPARISON; Electronically Signed On 09-30-2016 21:00:41 EST by Chloe Sifuentes; Radiology Order: portable chest Test: portable chest REASON FOR EXAMINATION: Chest Pain; Portable chest x-ray: Upright AP view.; ; History: Chest pain.; ; Comparison chest x-ray November 25, 2008.; ; Findings: EKG monitoring electrodes overlie the chest. The heart is not; enlarged. Lungs are well inflated and clear. Pulmonary vasculature is not; increased.; ; Impression:; ; No active disease.; ; ; Signed by; Sheng Islas MD 09/29/2016 11:14 A; Radiology Order: CT Chest Angio R/O PE Test: CT Chest Angio R/O PE REASON FOR EXAMINATION: Chest Pain; CT pulmonary angiogram: With IV contrast.; ; History: Chest pain.; ; Comparison studies: Comparison with today's chest x-ray.; ; Contrast dose: 75 cc's of Isovue 370 are administered intravenously.; ; CT technique: Helical scanning is acquired and overlapping 1.5 mm and contiguous; 3 mm axial images are reformatted. In addition, a 3-D work station is deployed; to generate thick slab maximum intensity projection images in sagittal and; coronal imaging projections.; ; CT pulmonary angiographic findings: There is good opacification of the pulmonary; arterial tree and there is no CT evidence of pulmonary embolism. The thoracic; aorta is normal in coarse and caliber and enhancement pattern is smooth. There; is no evidence of aneurysm or dissection. No pleural or pericardial effusion is; seen. There is mild bilateral hilar lymphadenopathy. There are several small; right inferior hilar lymph nodes. There are nodular opacities in the right lower; lobe lung parenchyma. The largest of these measures 9 mm in diameter. There are; several other smaller subcentimeter noncalcified pulmonary nodules scattered in; the left upper lobe, left lower lobe and right middle lobe. There are pleural; plaques noted bilaterally. No free pleural effusion is seen.; ; There are several low-density lesions scattered about the liver consistent with; benign hemangiomas. These are unchanged from March 16, [address] study.; There is fatty infiltration of the liver. No adrenal lesion is seen. The; visualized upper abdominal structures are otherwise unremarkable. No bony; destructive lesion is seen.; ; Impression:; ; 1. No CT evidence of pulmonary embolus.; ; 2. Multiple small bilateral hilar lymph nodes, right more numerous than left.; ; 3. Two or three nodular parenchymal densities in the right lower lobe,; indeterminate . Scattered smaller noncalcified pulmonary nodules bilaterally.; Recommend followup chest CT study in 3-4 months' time.; ; 4. Multiple hemangiomas of the liver unchanged from the 2011 prior study.; ; ; Signed by; Sheng Islas MD 09/29/2016 04:32 P; Outcome: 14:08 CT Study completed. [facility] 14:45 Discharge Assessment: Patient awake, alert and oriented x 3. No cognitive and/or mk4 functional deficits noted. Patient verbalized understanding of disposition instructions. Patient awake and alert. Discharge Assessment: patient administered narcotics - no. The following High Risk Discharge criteria are identified: None. Condition: good Condition: stable. Property sent home with patient. 14:47 Discharge ordered by Provider. fg 15:07 Patient left the ED. [facility] Signatures: Dispatcher [employer] EDMS Nicol Rose, Peanut Vendor Unit deg Mónica Shaw RN RN [facility] Jeane Merlos, Reg Reg gb Sugey Borges, COAL LOADER COAL LOADER ct3 Himanshu Morillo dem1 Jory Chery, DARRELL RN mk4 Arely Nugent jp5 Yola Hernandez MD MD fg Corrections: (The following items were deleted from the chart) 14:07 13:53 General: 4 4 Chart Complete MTDD
--- NOTE | 2016-10-01 16:10 | EDDOCDS ---
Physician Documentation [facility] Name: Montana Pablo Age: 71 yrs Sex: Male : 1945 Arrival Date: 09/29/2016 Time: 10:35 Bed 12 Private MD: Disposition: 09/29/16 14:47 Discharged to Home/Self Care. Impression: Chest pain, unspecified. - Condition is Stable. - Discharge Instructions: Nonspecific Chest Pain, Chest Wall Pain. - Medication Reconciliation, Local Pharmacy Hours form. - Follow up: Jonathan Olson; When: Call to arrange an appointment; Reason: Continuance of care. Follow up: Jovanny Mcdaniel MD; When: Call to arrange an appointment; Reason: Continuance of care. - Problem is new. - Symptoms have improved. Historical: - Allergies: no known allergies; - Home Meds: 1. Simvastatin Oral once daily 2. Vitamin B-12 Oral daily - PMHx: Hypertension; Hypercholesterolemia; - PSHx: Duodenal Ulcer Surgery; - Social history: No barriers to communication noted, The patient speaks fluent Libyan, Smoking status: Patient states former smoker of tobacco. - Family history: Not pertinent. - : The pt / caregiver states he / she is not on anticoagulants. Home medication list is obtained from the patient. - Exposure Risk Screening:: None identified. Vital Signs: 09/29 10:47 BP 148 / 65; Pulse 77; Resp 18; Temp 97.8(O); Pulse Ox 99% on R/A; Weight 86.18 kg / ct3 189.99 lbs (R); Height 5 ft. 6 in. (167.64 cm) (R); Pain 0/10; 10:56 BP 135 / 58 (auto/); mk4 10:56 Pulse 64 MON; Pulse Ox 97% ; mk4 11:10 Pulse 66 MON; Pulse Ox 98% ; mk4 11:11 BP 137 / 70 (auto/); mk4 11:26 BP 138 / 74 (auto/); mk4 11:27 Pulse 64 MON; Pulse Ox 97% ; mk4 11:41 BP 134 / 73 (auto/); mk4 11:42 Pulse 66 MON; Pulse Ox 96% ; mk4 11:56 BP 134 / 74 (auto/); mk4 11:56 Pulse 64 MON; Pulse Ox 99% ; mk4 12:11 BP 123 / 79 (auto/); mk4 12:11 Pulse 66 MON; Pulse Ox 98% ; mk4 12:26 BP 125 / 83 (auto/); mk4 12:28 Pulse 64 MON; Pulse Ox 98% ; mk4 12:41 BP 122 / 72 (auto/); mk4 12:42 Pulse 64 MON; Pulse Ox 99% ; mk4 13:06 BP 138 / 72 (auto/); mk4 13:07 Pulse 74 MON; Pulse Ox 98% ; mk4 13:26 BP 139 / 72 (auto/); mk4 13:27 Pulse 70 MON; Pulse Ox 97% ; mk4 13:56 BP 130 / 75 (auto/); mk4 13:56 Pulse 72 MON; Pulse Ox 97% ; mk4 14:26 BP 141 / 74 (auto/); mk4 14:27 Pulse 68 MON; Resp 18; Temp 97.2; Pulse Ox 96% ; mk4 10:47 Body Mass Index 30.67 (86.18 kg, 167.64 cm) ct3 MDM: 10:42 ECG WITH READING ER PHYS+CARDIAG ordered. EDMS 10:53 Aspirin Chewable Tablet 324 mg PO once ordered. fg 10:53 High Pressure Operator/Pulse Ox/q 30 min VS ordered. fg 10:53 IV Saline Lock ordered. fg 10:53 Rhythm Strip to chart ordered. fg 10:53 Undress patient appropriately for examination ordered. fg 10:54 B-Type Natiuretic Peptide Ordered. EDMS 10:54 Basic Metabolic Profile Ordered. EDMS 10:54 CBC with Diff Ordered. EDMS 10:54 Cardiac Injury Profile Ordered. EDMS 10:54 Partial Thromboplastin Time Ordered. EDMS 10:54 Troponin Ordered. EDMS 10:55 portable chest Ordered. EDMS 11:32 [facility] [place] Payment Agreement was scanned into [employer] and attached to record. jp5 11:32 Financial registration complete. jp5 12:24 CT Chest Angio R/O PE Ordered. EDMS 09/30 09:52 T-Sheet-- Draft Copy was scanned into [employer] and attached to record. gb 09:52 ECG/EKG was scanned into [employer] and attached to record. gb Administered Medications: 09/29 11:05 Drug: Aspirin 324 mg [aspirin 81 mg chewable tablet (4 tabs)] Route: PO; mk4 Signatures: Dispatcher [employer] Mónica Elliott, RN RN Jeane Dunlap, Jovanny Reg gb Jory Chery RN RN sanam4 Arely Nugent jp5 Yola Hernandez MD MD The chart was reviewed and I authenticate all verbal orders and agree with the evaluation and treatment provided.Attachments: 11:32 [facility] Payment Agreement jp5 09/30 09:52 T-Sheet-- Draft Copy gb 09:52 ECG/EKG gb Chart Complete MTDD
== END 2016-09-29 15:07 | disposition home or self-care (01) ==
LOC: M ED 10:35
DX: R07.9 Chest pain, unspecified (principal); I10 Essential (primary) hypertension; E78.5 Hyperlipidemia, unspecified; Z79.899 Other long term (current) drug therapy; Z87.891 Personal history of nicotine dependence
CPT/HCPCS: 36415; 71010; 71275; 80048; 82550; 82553; 83880; 84484; 85025; 85730; 93005; 93041; 99285; Q9967

== ENCOUNTER 2017-09-12 06:34 | Day surgery (SDC) | payer MEDICARE, BC, OTHER ==
[2017-09-12] MEDS: NS 1,000 ML IV (07:00)
[2017-09-12] MEDS ORDERED: PROPOFOL 200 MG/20 ML VIAL As Ordered (07:31)
== END 2017-09-12 08:15 | disposition home or self-care (01) ==
LOC: M OPP 06:34
DX: Z12.11 Encounter for screening for malignant neoplasm of colon (principal); Z86.010 Personal history of colon polyps; K64.0 First degree hemorrhoids; K57.30 Diverticulosis of large intestine without perforation or abscess without bleeding; E78.5 Hyperlipidemia, unspecified; Z87.19 Personal history of other diseases of the digestive system; M19.90 Unspecified osteoarthritis, unspecified site; J00 Acute nasopharyngitis [common cold]; Z79.899 Other long term (current) drug therapy; Z80.3 Family history of malignant neoplasm of breast; Z87.891 Personal history of nicotine dependence
CPT/HCPCS: G0105

== ENCOUNTER → 2019-02-28 | Outpatient (CLI) | payer MEDICARE, BC, OTHER ==
[~2019-02-28] MED LIST changes: -ACET50TA PO; +MAPA500T17 PO
--- NOTE | 2019-02-28 12:18 | REP ---
LUMBAR SPINE SERIES: Five views. HISTORY: Pain. Comparison study is from September 2012. FINDINGS: Lumbar vertebral body heights are preserved. Alignment is normal. There is diffuse degenerative disc disease. This has progressed since the 2013 prior study at is most pronounced at L4-5 and L5-S1 where there are vacuum phenomenon in the discs. Discogenic spurring is seen with disc space narrowing more pronounced than on the prior study at L2-3 as well. There is no evidence of spondylolysis or spondylolisthesis. There is fairly advanced osteoarthritic facet disease bilaterally at L5-S1 and to a lesser extent at L4-5. Psoas margins are symmetric. Sacrum and SI joints are unremarkable. IMPRESSION: Progressive degenerative disc and osteoarthritic facet changes when compared with the 2013 prior study. Electronically Signed by Sheng Islas MD 02/28/2019 05:05 P
== END ==
LOC: M WUC 08:36
PROVIDERS: ATTEND Nurse Practitioner Adult Health
DX: M51.37 Other intervertebral disc degeneration, lumbosacral region (principal)

== ENCOUNTER → 2019-06-19 | Outpatient (REF) | payer MEDICARE, OTHER | LOC: M LAB REF 12:41 | PROVIDERS: ATTEND Family Medicine | DX: E53.8 Deficiency of other specified B group vitamins (principal) ==

== ENCOUNTER → 2021-02-02 | Outpatient (REF) | payer MEDICARE, OTHER | LOC: M LAB REF 11:16 | PROVIDERS: ATTEND Family Medicine | DX: E53.8 Deficiency of other specified B group vitamins (principal) ==

== ENCOUNTER → 2022-02-17 | Outpatient (REF) | payer MEDICARE, OTHER | LOC: M LAB REF 11:58 | PROVIDERS: ATTEND Family Medicine | DX: E53.8 Deficiency of other specified B group vitamins (principal) ==

== ENCOUNTER → 2023-03-01 | Outpatient (CLI) | payer MEDICARE, OTHER | LOC: M WUC 14:41 | PROVIDERS: ATTEND Family Medicine | DX: M51.37 Other intervertebral disc degeneration, lumbosacral region (principal) ==

== ENCOUNTER 2023-04-26 22:16 | Emergency (ER) | payer MEDICARE, BC, OTHER ==
[~2023-04-26] VITALS: Ht 167.6 cm; Wt 82.7 kg
[2023-04-26 22:16] VITALS: BP 160/74; TEMP 97.6; O2SAT 98
[2023-04-26] MEDS ORDERED: FLOM0.4C39 PO (22:25)
[2023-04-26] MEDS ORDERED: VIAG100T PO (22:25)
[2023-04-26] MEDS ORDERED: MECLIZINE 25 MG TABLET PO ONE (23:30)
[2023-04-26] MEDS ORDERED: NS 1,000 ML IV SCH (23:30)
[2023-04-27 00:08] LABS: BASO % 0.7 % (0.0-1.0); EOS # 0.4 10^3/uL (0.0-0.5); EOS % 8.1 % (0.0-3.0); HEMATOCRIT 39.3 % (42.0-52.0); HEMOGLOBIN 13.1 g/dl (13.5-17.5); LYMPH # 1.7 10^3/uL (1.5-5.0); MEAN CORPUSCULAR HEMOGLOBIN 29.7 pg (27.0-33.0); MEAN CORPUSCULAR HGB CONC 33.3 g/dl (32.0-36.5); MEAN CORPUSCULAR VOLUME 89.1 fl (80.0-96.0); MONO # 0.4 10^3/uL (0.0-0.8); NEUTROPHILS # 1.9 10^3/uL (1.5-8.5); PLATELET COUNT, AUTOMATED 175 10^3/uL (150-450); RED BLOOD COUNT 4.41 10^6/uL (4.30-6.10); WHITE BLOOD COUNT 4.4 10^3/uL (4.0-10.0)
[2023-04-27 00:35] LABS: CK-MB VALUE MASS 1.8 NG/ML (<3.6)
[2023-04-27 00:36] LABS: ETHYL ALCOHOL (ETHANOL) 0.003 % (0.000-0.010)
[2023-04-27 00:37] LABS: ACETAMINOPHEN LEVEL < 2.0 UG/ML (10.0-20.0); ALBUMIN 3.4 G/DL (3.2-5.2); ALKALINE PHOSPHATASE 35 U/L (46-116); ALT/SGPT 21 U/L (7.0-40); AST/SGOT 19 U/L (<34); BILIRUBIN,DIRECT 0.1 MG/DL (<0.4); BILIRUBIN,TOTAL 0.4 MG/DL (0.3-1.2); BLOOD UREA NITROGEN 21 MG/DL (9-23); CALCIUM LEVEL 8.7 MG/DL (8.3-10.6); CARBON DIOXIDE LEVEL 26 MMOL/L (20-31); CHLORIDE LEVEL 108 MMOL/L (98-107); CREATININE FOR GFR 0.84 MG/DL (0.70-1.30); GLOMERULAR FILTRATION RATE > 60.0 (>42); GLUCOSE, FASTING 95 MG/DL (74-106); POTASSIUM SERUM 4.4 MMOL/L (3.5-5.1); SALICYLATE LEVEL < 3.0 MG/DL (<30); SODIUM LEVEL 141 MMOL/L (136-145); TOTAL PROTEIN 5.8 G/DL (5.7-8.2)
[2023-04-27 00:39] LABS: THYROID STIMULATING HORMONE 6.494 uIU/ML (0.55-4.78)
[2023-04-27 00:41] LABS: CPK CREATINE PHOSPHOKINASE 728 U/L (46-171); MB/CK RELATIVE INDEX 0.24 (< OR =4)
[2023-04-27] MEDS ORDERED: MECL-209 PO (00:54)
== END 2023-04-27 01:21 | disposition home or self-care (01) ==
LOC: M ED 22:16
DX: H81.4 Vertigo of central origin (principal); I25.2 Old myocardial infarction; Z85.46 Personal history of malignant neoplasm of prostate; Z79.899 Other long term (current) drug therapy

== ENCOUNTER → 2023-05-26 | Outpatient (CLI) | payer MEDICARE, BC, OTHER ==
[~2023-05-26] MED LIST changes: +FLOM0.4C39 PO; +MECL-209 PO; +PROHANCE 279.3MG/ML 15ML VIAL ONE; +PROHANCE 279.3MG/ML 5ML VIAL ONE; +VIAG100T PO
== END ==
LOC: M PLAIMG 09:54
PROVIDERS: ATTEND Family Medicine
DX: R42 Dizziness and giddiness (principal)
CPT/HCPCS: 70553; A9576

== ENCOUNTER → 2023-11-08 | Day surgery (SDC) | payer MEDICARE, BC, OTHER ==
[~2023-11-08] VITALS: Ht 167.6 cm; Wt 84.5 kg
[~2023-11-08] MED LIST changes: +B-12100010 PO; +ERGO500029 PO; +MECL-86 PO; -PROHANCE 279.3MG/ML 15ML VIAL ONE; -PROHANCE 279.3MG/ML 5ML VIAL ONE; +SILD100T PO; +SIMV20TA22 PO; +TAMS1CAP17 PO
[2023-11-08] MEDS: NS 1,000 ML IV ONE (10:39)
[2023-11-08 12:37] VITALS: BP 114/56; TEMP 98; O2SAT 94
== END | disposition home or self-care (01) ==
LOC: M OPP 10:06
PROVIDERS: ATTEND Internal Medicine Gastroenterology
DX: Z12.11 Encounter for screening for malignant neoplasm of colon (principal); Z86.010 Personal history of colon polyps; D12.0 Benign neoplasm of cecum; K64.0 First degree hemorrhoids; K57.30 Diverticulosis of large intestine without perforation or abscess without bleeding; Z79.02 Long term (current) use of antithrombotics/antiplatelets; Z79.899 Other long term (current) drug therapy

== ENCOUNTER → 2024-11-25 | Outpatient (REF) | payer MEDICARE, OTHER ==
[2024-11-25 13:02] LABS: VITAMIN B12 LEVEL 564 PG/ML (211-911)
[2024-11-25 13:06] LABS: THYROID PEROXIDASE ANTIBODY < 28.0 U/ML (<60.0)
== END ==
LOC: M LAB REF 12:13
PROVIDERS: ATTEND Family Medicine
DX: E53.8 Deficiency of other specified B group vitamins (principal); E07.9 Disorder of thyroid, unspecified